=== PATIENT | female | born 1970 | race Caucasian/White ===

== ENCOUNTER → 2020-09-27 | Outpatient (CLI) | payer OTHER ==
--- NOTE | 2020-09-27 15:33 | REP ---
INDICATION: LEFT KNEE PAIN S/P FALL 6 WEEKS AGO COMPARISON: None TECHNIQUE: Five views FINDINGS: The compartments are symmetric and well maintained. There is minimal tricompartmental marginal osteophyte formation. There is no acute fracture or destructive osseous lesion. IMPRESSION: Minimal chronic changes <Electronically signed by Gregor Iverson > 09/27/20 [id number]
== END ==
LOC: M RAD 15:07
PROVIDERS: ATTEND Physician Assistant Medical
DX: M25.562 Pain in left knee (principal); Z91.81 History of falling